=== PATIENT | male | born 1990 | race Caucasian/White ===

== ENCOUNTER 2017-02-28 14:28 | Emergency (ER) | payer MEDICAID, OTHER ==
[2017-02-28 14:37] VITALS: TEMP 97.9
[2017-02-28] MEDS ORDERED: Sodium Chloride 0.9% 1,000 ML IV ONE (14:44)
--- NOTE | 2017-02-28 14:51 | C.PDOC ---
History Of Present Illness 26 y/o male, with no significant past medical history, presents to ED who states that he was drinking alcohol last night, forced himself to vomit, and suddenly incurred a sharp pain to the right lateral chest wall. Patient states that while vomiting, he felt a "pop" along his right lateral chest wall, along his lower ribs. Patient reports the pain was sharp, lasting about a minute, and spontaneously subsided. Patient states that the pain is now reproducible with any movement of the ribs and with deep breaths. Otherwise, denies cough, SOB, URI symptoms, abdominal pain, or other associated symptoms. Time Seen by Provider: 02/28/17 14:40 Chief Complaint (Nursing): Abdominal Pain History Per: Patient History/Exam Limitations: no limitations Onset/Duration Of Symptoms: Days Current Symptoms Are (Timing): Still Present Recent travel outside of the [place]: No Past Medical History Reviewed: Historical Data, Nursing Documentation, Vital Signs Vital Signs: Last Vital Signs Temp 97.9 F 02/28/17 14:31 Pulse 106 H 02/28/17 15:41 Resp 18 02/28/17 15:41 BP 117/70 02/28/17 15:41 Pulse Ox 99 02/28/17 15:41 - Medical History PMH: Sleep Apnea Surgical History: Tonsillectomy Family History: States: Unknown Family Hx - Social History Hx Tobacco Use: No Hx Alcohol Use: Yes Hx Substance Use: No - Immunization History Hx Tetanus Toxoid Vaccination: Yes Hx Influenza Vaccination: No Hx Pneumococcal Vaccination: No Review Of Systems Except As Marked, All Systems Reviewed And Found Negative. Constitutional: Negative for: Fever, Chills Cardiovascular: Negative for: Chest Pain, Palpitations Respiratory: Negative for: Cough, Shortness of Breath, Wheezing Gastrointestinal: Negative for: Nausea, Vomiting, Abdominal Pain Musculoskeletal: Positive for: Other (right chest wall/rib pain) Skin: Negative for: Rash Physical Exam - Physical Exam Appears: Non-toxic, No Acute Distress, Other (obese) Skin: Normal Color, Warm, Dry Head: Atraumatic, Normacephalic Oral Mucosa: Moist Chest: Symmetrical, Tenderness (right mid-axillary line over costal margin and lower 2 ribs ) Cardiovascular: Rhythm Regular, No Murmur Respiratory: Normal Breath Sounds, No Accessory Muscle Use, No Rales, No Rhonchi , No Wheezing Gastrointestinal/Abdominal: Soft, No Tenderness, No Distention, No Guarding, No Rebound Back: Normal Inspection Extremity: Normal ROM, Capillary Refill (< 2 sec.) Neurological/Psych: Oriented x3, Normal Speech, Normal Cognition ED Course And Treatment - Laboratory Results Result Diagrams: 02/28/17 15:16 02/28/17 15:16 Lab Interpretation: Normal O2 Sat by Pulse Oximetry: 97 (RA) Pulse Ox Interpretation: Normal - Radiology CXR: Interpreted by Me CXR Interpretation: Yes: No Acute Disease Progress Note: Labs, CxR, IVFs ordered. Reevaluation Time: 15:36 Reassessment Condition: Improved Disposition Counseled Patient/Family Regarding: Studies Performed, Diagnosis, Need For Followup - Disposition Referrals: Deion Sommers MD [Medical Doctor] - Disposition: HOME/ ROUTINE Disposition Time: 16:01 Condition: IMPROVED Instructions: Chest Wall Pain (ED) Forms: [facility] ([place]an) - Clinical Impression Clinical Impression: Acute chest wall pain - Scribe Statement The provider has reviewed the documentation as recorded by the Renee Bhat Provider Attestation: All medical record entries made by the Renee were at my direction and personally dictated by me. I have reviewed the chart and agree that the record accurately reflects my personal performance of the history, physical exam, medical decision making, and the department course for this patient. I have also personally directed, reviewed, and agree with the discharge instructions and disposition.
--- NOTE | 2017-02-28 14:55 | RAD ---
HISTORY: abd pain COMPARISON: None available. TECHNIQUE: Chest PA and lateral FINDINGS: Examination limited by habitus. LUNGS: No focal consolidation. Please note that chest x-ray has limited sensitivity for the detection of pulmonary masses. PLEURA: No significant pleural effusion identified. No definite pneumothorax . CARDIOVASCULAR: Heart size appears within normal limits. OSSEOUS STRUCTURES: No acute osseous abnormality identified. VISUALIZED UPPER ABDOMEN: Unremarkable. OTHER FINDINGS: None. IMPRESSION: No focal consolidation, significant pleural effusion, or definite pneumothorax identified.
[2017-02-28 15:20] LABS: BASO # 0.1 K/uL (0.0-0.2); BASO % 0.5 % (0.0-2.0); EOS # 0.1 K/uL (0.0-0.7); HEMATOCRIT 44.5 % (35.0-51.0); LYMPH # 2.4 K/uL (1.0-4.3); LYMPH % 24.4 % (20.0-40.0); MEAN CELL VOLUME 83.6 fL (80.0-94.0); MEAN CORPUSCULAR HEMOGLOBIN 28.8 pg (27.0-31.0); MEAN CORPUSCULAR HGB CONC 34.4 g/dL (33.0-37.0); MEAN PLATELET VOLUME 8.3 fL (7.2-11.7); MONO # 0.9 K/uL (0.0-0.8); MONO % 8.9 % (0.0-10.0); NRBC % 0.2 % (0.0-2.0); RED CELL DISTRIBUTION WIDTH 13.6 % (11.5-14.5); WHITE BLOOD COUNT 9.8 K/uL (4.8-10.8)
[2017-02-28] MEDS ORDERED: Sodium Chloride 0.9% 1,000 ML ONE (15:22)
[2017-02-28 15:27] LABS: CHLORIDE 100 mmol/L (98-107)
[2017-02-28 15:28] LABS: POTASSIUM 3.7 mmol/L (3.6-5.2); SODIUM 139 mmol/L (132-148)
[2017-02-28 15:30] LABS: ALB/GLOB RATIO 1.3 (1.0-2.1); ALKALINE PHOSPHATASE 57 U/L (38-126); ALT/SGPT 75 U/L (21-72); AST/SGOT 32 U/L (17-59); BILIRUBIN,TOTAL 0.7 mg/dL (0.2-1.3); BLOOD UREA NITROGEN 12 mg/dL (9-20); CARBON DIOXIDE 27 mmol/L (22-30); GFR AFRICAN-AMERICAN > 60; GLUCOSE,RANDOM 81 mg/dL (75-110); TOTAL PROTEIN 7.1 g/dL (6.3-8.3)
[2017-02-28 15:31] LABS: CALCIUM 9.3 mg/dl (8.6-10.4)
[2017-02-28 15:41] VITALS: BP 117/70; PULSE 106; RESP 18
[2017-02-28 16:02] VITALS: O2SAT 97
== END 2017-02-28 16:35 | disposition home or self-care (01) ==
LOC: C.ER 14:28
DX: R07.89 Other chest pain (principal)
CPT/HCPCS: 71020; 80053; 83690; 85025; 96360; 99284; J7040

== ENCOUNTER 2018-09-19 10:08 | Emergency (ER) | payer OTHER, MEDICAID | END 2018-09-19 13:32 | disposition home or self-care (01) | LOC: C.ER 10:08 ==